=== PATIENT | male | born 1940 | race Caucasian/White ===

== ENCOUNTER 2017-07-28 17:57 | Emergency (ER) | payer MEDICARE ==
[~2017-07-28 17:57] MED LIST: ASA325 MG PO; TOPROL XL DPS50 MG PO; VANTIN100 MG PO
--- NOTE | 2017-07-29 10:00 | ER ---
ADMIT: 07/28/2017 RM/LOC: ER [facility] MR#: [id number] [address] [facility] [address] [place], [place] [id number] KATHY RONQUILLO [address] [facility] [address] [place] [address] Emergency Room Report SEX: M AGE: 76 : 1940 DATE: 07/28/2017 CHIEF COMPLAINT: Fall. HISTORY OF PRESENT ILLNESS: A 76-year-old male presents to the ED via EMS for evaluation after a fall at home. He states he was out working outside with his son when he was leaning on a car and collapsed. Son and family report he struck his head during this fall. However, he denies any pain at present, later does relate that he has some pain in his left foot when he stands. Denies dizziness or lightheadedness. He denies any loss of consciousness. Family thinks there may have been a few seconds when he was unresponsive. The patient denies any recent illness, fever, weakness, numbness, back pain, cough, shortness of breath, nausea, or vomiting. PAST MEDICAL HISTORY: Hypertension, neurogenic bladder when he was hospitalized last year with UTI and secondary septic shock. ALLERGIES: NONE. COURSE IN THE EMERGENCY ROOM: The patient was seen and examined. GENERAL: Afebrile, nontoxic, in no acute distress, initially tachycardic and tachypneic with 88% on room air. After allowing to rest, he does return to 94% to 95% on room air. He was never placed on oxygen. SIRS protocol was initiated. He is in no acute distress. He is alert. HEAD: Normocephalic and atraumatic. NECK: Soft and supple. EYES: Equal and reactive. ENT: Normal external ear. No dental or oral injuries. CHEST: Nontender. Breath sounds were diminished. There are no wheezes, rhonchi, or rales. HEART: No murmurs, gallops, or rubs. ABDOMEN: Soft. NEUROLOGIC: He is alert oriented. Motor sensation intact in extremities. SKIN: Intact. EXTREMITIES: Atraumatic. PELVIS: Stable. He has some tenderness to palpation over the medial aspect of the left foot. Chest x-ray reveals some left lower lobe opacification versus atelectasis. Head CT, no acute findings. LABORATORY STUDIES: White count is not elevated. Lactic acid 2.1. Chemistries, BUN 27, creatinine 2.1. UA shows 84 wbc's and 16 rbc's. PT and PTT within normal limits. EKG, no ST-T elevation, no Q-wave abnormalities. While in the department, the patient was monitored on continuous tele. He did not require oxygen. He was hemodynamically stable. Given the findings of the chest x-ray in the urine and I did state that it ADMIT: 07/28/2017 RM/LOC: ER [facility] MR#: [id number] [address] [place], [place] [id number] KATHY RONQUILLO [address] [place] [address] [address] [place] [address] Emergency Room Report SEX: M AGE: 76 : 1940 would be beneficial for this patient to be hospitalized as I think he would benefit from IV antibiotics and continued inpatient management, he refused as he has a followup with Dr. Boyd next week, and he does not wish to be hospitalized. We will start him on Levaquin for empiric treatment of pneumonia versus atelectasis and UTI. Pharmacy dosed this given his chronic kidney disease. Recommended 500 mg loading dose followed by 250 mg daily. CLINICAL IMPRESSION: 1. Fall. 2. Left lower lobe pneumonia versus atelectasis. 3. Urinary tract infection. 4. Chronic neurogenic bladder. 5. Chronic kidney disease. 6. Left foot contusion. DISPOSITION: Discharged home. Levaquin 250 q.24 for 10 days. He will follow up with Dr. Boyd on Wednesday as scheduled. He is to increase his fluids, avoid being outside in the heat for the next several days. He is to return with any worsening signs or symptoms. States he has family available to monitor him for any worsening status. He is also educated to empty his bladder every 6 hours. When he presented today, he had greater than 1500 in his bladder. CONDITION ON DISCHARGE: Good. JYOTI Rinaldi / Kathy Chang MD / modl JOB #: [id number] CC: Kathy Chang MD, Attending Physician Rom Boyd MD, Family Physician
== END 2017-07-28 21:05 | disposition home or self-care (01) ==
LOC: ER 17:57
DX: S90.32XA Contusion of left foot, initial encounter (principal); I12.9 Hypertensive chronic kidney disease with stage 1 through stage 4 chronic kidney disease, or unspecified chronic kidney disease; N18.9 Chronic kidney disease, unspecified; N39.0 Urinary tract infection, site not specified; Z79.899 Other long term (current) drug therapy; W18.30XA Fall on same level, unspecified, initial encounter; Y93.89 Activity, other specified; Y92.009 Unspecified place in unspecified non-institutional (private) residence as the place of occurrence of the external cause